=== PATIENT | female | born 1990 | race Caucasian/White ===

== ENCOUNTER 2024-03-03 08:22 | Emergency (ER) | payer SELFPAY ==
[2024-03-03 08:58] LABS: BILIRUBIN,URINE NEGATIVE (NEGATIVE); COLOR,URINE YELLOW; GLUCOSE,URINE NEGATIVE (NEGATIVE); KETONES,URINE NEGATIVE (NEGATIVE); LEUKOCYTE ESTERASE,URINE NEGATIVE (NEGATIVE); NITRITE,URINE NEGATIVE (NEGATIVE); OCCULT BLOOD,URINE MODERATE (NEGATIVE); PROTEIN,URINE NEGATIVE (NEGATIVE); UROBILINOGEN,URINE 0.2 EU/dL (<2.0)
[2024-03-03 09:06] LABS: APPEARANCE,URINE SLT CLOUDY
[2024-03-03 09:07] LABS: BACTERIA,URINE FEW (NEGATIVE); CALCIUM OXALATE CRYSTALS,URINE FEW (NEGATIVE); EPITHELIAL CELLS,URINE MODERATE (NONE-FEW); MUCUS,URINE LIGHT (NONE-MOD); WBC,URINE 0-4 (0-5/HPF)
[2024-03-03] MEDS ORDERED: Sodium Chloride 0.9% 10 ML Syringe FLUSH PRN (09:17)
[2024-03-03] MEDS ORDERED: Sodium Chloride 0.9% 2.5 ML Syringe FLUSH PRN (09:17)
[2024-03-03] MEDS ORDERED: Sodium Chloride 0.9% 20 ML SDV IV PRN (09:17)
[2024-03-03] MEDS: Acetaminophen 500 MG Tab PO ONE (09:49)
[2024-03-03] MEDS: Ketorolac 30 MG/ML SDV IVPUSH ONE (09:50)
[2024-03-03] MEDS: Sodium Chloride 0.9% 1,000 ML IV ONE (09:50)
== END 2024-03-03 11:19 | disposition home or self-care (01) ==
LOC: MW.ED 08:22
DX: R30.0 Dysuria (principal); R10.9 Unspecified abdominal pain; Z87.442 Personal history of urinary calculi; Z87.898 Personal history of other specified conditions; Z79.899 Other long term (current) drug therapy
CPT/HCPCS: 74176; 81001; 81025; 96374; 99284; A9270; J1885; J7030

== ENCOUNTER 2024-03-26 09:11 | Emergency (ER) | payer SELFPAY ==
[2024-03-26 09:40] LABS: BASOPHILS ABSOLUTE AUTO 0.03 K/uL (0.00-0.20); BASOPHILS PERCENT AUTO 0.4 % (0.0-1.0); EOSINOPHILS ABSOLUTE AUTO 0.08 K/uL (0.00-0.45); EOSINOPHILS PERCENT AUTO 1.2 % (0.0-6.0); HEMATOCRIT 39.5 % (37.0-47.0); HEMOGLOBIN 13.2 g/dL (12.0-16.0); IMMATURE GRAN ABSOLUTE AUTO 0.01 K/uL (0.00-0.05); IMMATURE GRAN PERCENT AUTO 0.1 % (0.0-0.4); LYMPHOCYTES ABSOLUTE AUTO 1.84 K/uL (1.00-4.80); LYMPHOCYTES PERCENT AUTO 26.9 % (24.0-44.0); MEAN CORPUSCULAR HEMOGLOBIN 29.5 pg (28.0-32.0); MEAN CORPUSCULAR HGB CONC 33.4 g/dL (32.0-36.0); MEAN CORPUSCULAR VOLUME 88.2 fL (83.0-99.0); MEAN PLATELET VOLUME 9.7 fL (9.4-12.3); MONOCYTES ABSOLUTE AUTO 0.49 K/uL (0.00-0.80); MONOCYTES PERCENT AUTO 7.2 % (0.0-8.0); NEUTROPHILS PERCENT AUTO 64.2 % (41.0-71.0); PLATELET COUNT,PLT 232 K/uL (150-400); RED BLOOD CELL COUNT 4.48 M/uL (4.10-5.30); WHITE BLOOD CELL COUNT,WBC 6.85 K/uL (3.9-11.3)
[2024-03-26 09:42] LABS: APPEARANCE,URINE CLEAR; BILIRUBIN,URINE NEGATIVE (NEGATIVE); COLOR,URINE YELLOW; GLUCOSE,URINE NEGATIVE (NEGATIVE); KETONES,URINE NEGATIVE (NEGATIVE); LEUKOCYTE ESTERASE,URINE NEGATIVE (NEGATIVE); NITRITE,URINE NEGATIVE (NEGATIVE); OCCULT BLOOD,URINE NEGATIVE (NEGATIVE); PROTEIN,URINE NEGATIVE (NEGATIVE); UROBILINOGEN,URINE 0.2 EU/dL (<2.0)
[2024-03-26] MEDS: Famotidine 20 MG/2 ML SDV IVPUSH ONE (09:50)
[2024-03-26] MEDS: Sodium Chloride 0.9% 2.5 ML Syringe FLUSH PRN (09:50)
[2024-03-26] MEDS: Ondansetron 4 MG/2 ML SDV IVPUSH ONE (09:50)
[2024-03-26] MEDS: Sodium Chloride 0.9% 10 ML Syringe FLUSH PRN (09:50)
[2024-03-26] MEDS: fentaNYL 50 MCG/ML SDV IVPUSH ONE (09:50)
[2024-03-26 09:59] LABS: A/G RATIO 0.9 (0.9-1.6); BILIRUBIN TOTAL 0.7 mg/dL (0.2-1.0); CARBON DIOXIDE,CO2 25.2 mmol/L (21.0-32.0); EST CRCL DRUG DOSING (CG) 67.43 mL/min; POTASSIUM,K 4.1 mmol/L (3.5-5.1); PROTEIN TOTAL,TP 6.5 g/dL (6.4-8.2)
== END 2024-03-26 10:38 | disposition home or self-care (01) ==
LOC: MW.ED 09:11
DX: R10.11 Right upper quadrant pain (principal); Z79.899 Other long term (current) drug therapy; Z75.8 Other problems related to medical facilities and other health care
CPT/HCPCS: 36415; 80053; 81003; 83690; 84703; 85025; 96374; 96375; 99284; J2405; J3010; J3490

== ENCOUNTER 2024-04-09 08:48 | Day surgery (SDC) | payer SELFPAY ==
[2024-04-09] MEDS: Lactated Ringers 1,000 ML IV SCH (10:04)
[2024-04-09] MEDS ORDERED: propofoL 50 ML ONE (10:23)
[2024-04-09] MEDS ORDERED: Midazolam 1 MG/ML 2 ML SDV ONE (10:53)
[2024-04-09] MEDS ORDERED: Lidocaine 2% 5 ML SDV ONE (10:58)
[2024-04-09] MEDS ORDERED: Propofol 200 MG/20 ML SDV ONE (11:32)
== END 2024-04-09 12:30 | disposition home or self-care (01) ==
LOC: MW.SDS 08:48
PROVIDERS: ATTEND Surgery
DX: D12.6 Benign neoplasm of colon, unspecified (principal); K52.9 Noninfective gastroenteritis and colitis, unspecified; F31.9 Bipolar disorder, unspecified; F90.9 Attention-deficit hyperactivity disorder, unspecified type; K21.9 Gastro-esophageal reflux disease without esophagitis; F17.290 Nicotine dependence, other tobacco product, uncomplicated; Z79.899 Other long term (current) drug therapy
CPT/HCPCS: 43239; 45380; 45385; 81025; J2704; J7120; 00813; J3490